=== PATIENT | male | born 1985 | race Caucasian/White ===

== ENCOUNTER 2017-04-26 13:43 | Emergency (ER) | payer BC ==
[2017-04-26 16:33] VITALS: BP 143/67
--- NOTE | 2017-04-26 17:25 | UC ---
Nausea/Vomiting/Diarrhea HPI - HPI Summary HPI Summary: Pt presents to with complaint of diarrhea since Sat. Pt states "watery" no blood no black Pt states has abdominal cramping prior to BM. Pt has been able to drink but when eats, has diarrhea within 30min. Pt took Tums without relief. Pt states stools have slowed down, but had to leave work second to diarrhea - 3 BM today. Pt came because left work. No fever, chills, rash. No nausea, vomiting. Pt with sick contact. No travel. 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 ate a breakfast pizza with sausage this am and then had diarrhea Pt's medications reviewed this visit - History of Current Complaint Chief Complaint: UCGI Stated Complaint: DIARRHEA Time Seen by Provider: 04/26/17 17:17 Hx Obtained From: Patient Onset/Duration: Sudden Onset Timing: Constant Severity Initially: Moderate Severity Currently: Moderate Pain Intensity: 0 Location: Diffuse Character: Cramping Aggravating Factor(s): Food Diarrhea Presence: Yes Diarrhea Frequency: Daily Diarrhea Duration: 2-3 days Diarrhea Characteristics: Watery - Allergies/Home Medications Allergies/Adverse Reactions: Allergies Allergy/AdvReac Type Severity Reaction Status Date / Time No Known Allergies Allergy Verified 11/09/12 18:14 PMH/Surg Hx/FS Hx/Imm Hx Previously Healthy: Yes - Surgical History Surgical History: None - Family History Known Family History: Positive: Hypertension - Social History Occupation: Employed Full-time Lives: Alone Alcohol Use: Weekly Substance Use Type: None Smoking Status (MU): Heavy Every Day Tobacco Smoker Type: Cigarettes Amount Used/How Often: 4 CIGARETTES Length of Time of Smoking/Using Tobacco: 9 YEARS Have You Smoked in the Last Year: Yes Review of Systems Skin: Negative Gastrointestinal: Diarrhea All Other Systems Reviewed And Are Negative: Yes Physical Exam Triage Information Reviewed: Yes Appearance: Well-Appearing, No Pain Distress, Well-Nourished Vital Signs: Initial Vital Signs Temp 99.1 F 04/26/17 16:28 Pulse 95 04/26/17 16:28 Resp 18 04/26/17 16:28 BP 143/67 04/26/17 16:28 Pulse Ox 97 04/26/17 16:28 Vital Signs Reviewed: Yes Eye Exam: Normal Eyes: Positive: Conjunctiva Clear ENT Exam: Normal ENT: Positive: Hearing grossly normal, Pharynx normal, TMs normal Neck exam: Normal Neck: Positive: Supple, Nontender, No Lymphadenopathy Respiratory Exam: Normal Respiratory: Positive: Chest non-tender, Lungs clear, Normal breath sounds, No respiratory distress, No accessory muscle use Cardiovascular Exam: Normal Cardiovascular: Positive: RRR, No Murmur, Pulses Normal Abdomen Description: Positive: Nontender, No Organomegaly, Soft. Negative: Distended, Guarding Musculoskeletal Exam: Normal Musculoskeletal: Positive: Strength Intact Neurological Exam: Normal Neurological: Positive: Alert Psychological Exam: Normal Psychological: Positive: Normal Response To Family Skin Exam: Normal Naus/Vom/Diarrhea Course/Dx - Course Course Of Treatment: Pt with 3-4 days of watery diarrhea. Have decreased in frequency Pt with cramping preceeding BM but none in between BM. No fevers, chills. VSS. Non concerning exam. d/w pt at length regarding hydration, blan food, immodium. stool kit dispensed with return instructions. Pt comfortable and in agreement with plan - Differential Dx/Diagnosis Provider Diagnoses: diarrhea Condition At Discharge: Stable Discharge - Discharge Plan Condition: Stable Disposition: HOME Patient Education Materials: Diet for Stomach Ulcers and Gastritis (ED), Acute Diarrhea (ED) Forms: *Gen. Provider Communication, *Work Release Referrals: [facility] [Outside] No Primary Care Phys,NOPCP [Primary Care Provider] - Additional Instructions: - Stay well hydrated - avoid excess caffeine and all alcohol - eat frequent, small doses of bland food - dry toast, crackers, scrambled eggs. If you tolerate this, slowly add food to your diet. Wait until you are feeling better before eating spicy food, acidic good - Okay to take immodium to help with your diarrhea - If you develop fevers, increased abdominal pain, or are unable to stay hydrated - it is recommended you go directly to the hospital for additional care - you have been given a stool collection kit -if you continue to have diarrhea, bring a sample back here for testing - call the physician referral center to schedule a follow-up appointment
== END 2017-04-26 17:55 | disposition home or self-care (01) ==
LOC: UCCORT 13:43
DX: R19.7 Diarrhea, unspecified (principal); Z72.89 Other problems related to lifestyle; F17.210 Nicotine dependence, cigarettes, uncomplicated
CPT/HCPCS: 99211; G0463

== ENCOUNTER 2018-02-08 20:29 | Emergency (ER) | payer BC ==
[2018-02-08 20:42] VITALS: BP 145/83
[2018-02-08] MEDS ORDERED: Amoxicillin PO (*) 500 MG CAP PO ONE ×2 (20:43→20:44)
--- NOTE | 2018-02-08 20:43 | UC ---
Dental HPI - HPI Summary HPI Summary: 32-year-old male comes in today with a chief complaint of dental infection. Started couple days ago but just today's getting a lot of swelling in the right side of the face. He does have a decayed tooth in the right upper jaw. No fevers no chills. Feels well otherwise. - History of Current Complaint Stated Complaint: DENTAL Time Seen by Provider: 02/08/18 20:34 - Allergies/Home Medications Allergies/Adverse Reactions: Allergies Allergy/AdvReac Type Severity Reaction Status Date / Time No Known Allergies Allergy Verified 02/08/18 20:39 PMH/Surg Hx/FS Hx/Imm Hx Previously Healthy: Yes - Surgical History Surgical History: None - Family History Known Family History: Positive: Hypertension - Social History Alcohol Use: Weekly Substance Use Type: None Smoking Status (MU): Heavy Every Day Tobacco Smoker Type: Cigarettes Amount Used/How Often: 4 CIGARETTES Length of Time of Smoking/Using Tobacco: 9 YEARS Have You Smoked in the Last Year: Yes Review of Systems All Other Systems Reviewed And Are Negative: Yes Constitutional: Positive: Negative Skin: Positive: Negative Eyes: Positive: Negative ENT: Positive: Dental Pain Respiratory: Positive: Negative Cardiovascular: Positive: Negative Gastrointestinal: Positive: Negative Motor: Positive: Negative Neurovascular: Positive: Negative Musculoskeletal: Positive: Negative Neurological: Positive: Negative Psychological: Positive: Negative Is Patient Immunocompromised?: No Physical Exam Triage Information Reviewed: Yes Appearance: Well-Appearing, No Pain Distress, Well-Nourished Vital Signs Reviewed: Yes Eye Exam: Normal Eyes: Positive: Conjunctiva Clear ENT: Positive: Pharynx normal. Negative: Pharyngeal erythema, Nasal congestion , Nasal drainage Dental: Positive: Gross Decay/Caries @ - RIGHT UPPER MOLAR Neck exam: Normal Neck: Positive: Supple Respiratory: Positive: Lungs clear, Normal breath sounds, No respiratory distress Cardiovascular: Positive: RRR Musculoskeletal Exam: Normal Musculoskeletal: Positive: Strength Intact, ROM Intact Neurological Exam: Normal Neurological: Positive: Alert Psychological Exam: Normal Psychological: Positive: Age Appropriate Behavior Skin Exam: Normal Dental Complaint Course/Dx - Differential Dx/Diagnosis Provider Diagnoses: DENTAL INFECTION Discharge - Sign-Out/Discharge Documenting (check all that apply): Patient Departure All imaging exams completed and their final reports reviewed: No Studies - Discharge Plan Condition: Stable Disposition: HOME Prescriptions: Amoxicillin PO (*) [Amoxicillin 500 MG CAP*] 500 mg PO TID #28 cap Patient Education Materials: Dental Abscess (ED) Referrals: [facility] [Outside] Additional Instructions: FOLLOW UP WITH YOUR DENTIST. GET RECHECKED FOR ANY WORSENING OF YOUR CONDITION OR QUESTIONS OR CONCERNS. - Billing Disposition and Condition Condition: STABLE Disposition: Home
== END 2018-02-08 20:56 | disposition home or self-care (01) ==
LOC: UCCORT 20:29
DX: K04.7 Periapical abscess without sinus (principal); K02.9 Dental caries, unspecified; F17.210 Nicotine dependence, cigarettes, uncomplicated
CPT/HCPCS: 99212; A9270-GY; G0463